=== PATIENT | female | born 1955 | race African-American/Black ===

== ENCOUNTER 2021-08-07 08:52 | Emergency (ER) | payer OTHER ==
--- OUTSIDE RECORDS SUMMARY | 2021-08-07 08:55 | XMS REPORT | Continuity of Care Document ---
:1955 Author Organization [facility] t Address [address] [place] [address] Care Team Providers Name Role Phone Julio Arambula MD Primary Care Physician Julio Arambula MD Attending Clinician Jeffrey Dougherty MD Attending Clinician Italo REED Attending Clinician Unavailable Lin Her MD Attending Clinician Cally REED Attending Clinician Unavailable Zhao LYN, Yolette Attending Clinician Dimitrios Attending Clinician Unavailable Shay Bonilla MD Attending Clinician Payers Payer Name Policy Type Policy Number Effective Date Expiration Date S ource Problems Condition Condition Condition Status Onset Resolution Last Treating Co mments Source Name Details Category Date Date Treatment Clinician Date COVID COVID-19 Disease Active 2019-06 Metho di 2-23 st 00:00: Hospita 00 l 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 hodi triangular triangular 5-04 st fibrocarti fibrocarti 00:00: Ho spita jl jl 00 l complex 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 Type 2 Type 2 Disease Active Methodi diabetes diabetes 5-17 st mellitus mellitus 00:00: Hospit a 00 l Allergies, Adverse Reactions, Alerts Allergy Allergy Status Severity Reaction(s) Onset Inactive Treating Comm ents Source Name Type Date Date Clinician No Known Propensi Active Method i Drug ty to 17 st Allergie adverse 00:00: Hospita s reaction 00 l s to drug Family History Family Member Diagnosis Comments Start Date Stop Date Source Natural father Heart attack [facility] Natural mother Dementia [facility] Natural sister Diabetes [facility] Natural sister Hypothyroidism [facility] Natural sister Sutton's disease [facility] [place] sister Heart failure [facility] Natural sister Thyroid cancer [facility] Social History Social Habit Start Date Stop Date Quantity Comments Source History of Cigarette Smoker Method[facility] tobacco use Hospital History [facility] Sabianism Alcohol Frequency Hospita l History SDOH Sabianism Alcohol Std Hospital Drinks History [facility] Alcohol Binge Hospital Alcohol intake 2021-05-12 2021-05-12 Current drinker Metho dist 00:00:00 00:00:00 of alcohol Hospital (finding) Tobacco use and 2017-04-22 2017-04-22 Smokeless tobacco [facility] exposure 00:00:00 00:00:00 non-user Hospital Alcohol Comment 2017-04-22 2017-04-22 one drink a month [facility] 00:00:00 00:00:00 Hospital Tobacco Comment 2017-04-22 2017-04-22 2-4 cigs per day [facility] 00:00:00 00:00:00 Hospital Sex [birth year] At [birth year] Sabianism 00:00:00 00:00:00 Hospital Smoking Status Start Date Stop Date Source Smokes tobacco daily 2017-04-22 00:00:00 [facility] Medications Ordered Filled Start Stop Current Ordering Indication Dosage Frequency Signature Comments Components Source Medication Medication Date Date Medication? Clinician (SIG) Name Name aspirin 2020-06 Yes 81mg QD Take 81 mg Meth jose ramon (ECOTRIN) 1-[address] 81 MG 10:05: daily. Hospita enteric 09 l coated tablet olmesartan- 2020-06 Yes 1{tbl} QD Take 1 Me thodi hydrochloro 1-[address] thiazide 00:00: mouth Hospita (BENICAR 00 daily. l HCT) 20-12.5 mg per tablet semaglutide 2020-06 Yes 3mg QD Take 3 mg M ethodi (Rybelsus) 1-[address] 3 mg tablet 00:00: daily. Hosp chad 00 l amoxicillin 2020-06- No 1{tbl} Q.5D Take 1 M ethodi -pot 07-01 11-[address] clavulanate 00:00: 05:59 mouth 2 Ho spita (Augmentin) 00 :00 (two) l 875-125 mg times a per tablet day for 7 days. cetirizine 2020-06 Yes Methodi (ZyrTEC) 10 1-05 st MG tablet 00:00: Hospita 00 l traZODone 2020-06 Yes 25mg QD Take 0.5 Meth jose ramon (DESYREL) 0-[address] 50 MG 00:00: (25 mg Hospita tablet 00 total) by l mouth nightly. levothyroxi 2020-06 Yes 75ug QD Take 1 Meth jose ramon ne 0-14 tablet (75 st (Euthyrox) 00:00: mcg total) H ospita 75 mcg 00 by mouth l tablet daily. Euthyrox 75 2020- No Take 1 Met hodi mcg tablet 03-[address] 00:00: 00:00 mouth once Hospit a 00 :00 daily l levothyroxi 2020- No 75ug QD Take 1 Met hodi ne 6-14 09-09 tablet (75 st (Euthyrox) 00:00: 00:00 mcg total) Hospita 75 mcg 00 :00 by mouth l tablet daily. metFORMIN Yes 500mg Q.5D Take 1 Metho di XR 6-[address] (GLUCOPHAGE 00:00: (500 mg Hos rehan -XR) 500 mg 00 total) by l 24 hr mouth 2 tablet (two) times a day. traZODone 2020- No 25mg QD Take 0.5 Met hodi (DESYREL) 6- 10-[address] 50 MG 00:00: 00:00 (25 mg Hospita tablet 00 :00 total) by l mouth nightly. sodium,pota 2020- No 1{bottl Take 1 Methodi ssium,mag 5-25 05-26 e} Bottle by st sulfates 00:00: 04:59 mouth once Ho spita (Suprep 00 :00 for 1 l Bowel Prep dose. Kit) Drink 1 17.5-3.13-1 bottle as .6 gram directed recon soln for dose 1 and 1 bottle as directed for dose 2. Euthyrox 75 2020- No Take 1 Met hodi mcg tablet 11-[address] 00:00: 00:00 mouth once Hospit a 00 :00 daily l metFORMIN 2020- No 500mg Q.5D Take 1 Meth jose ramon XR 10-[address] (GLUCOPHAGE 00:00: 00:00 (500 mg Ho spita -XR) 500 mg 00 :00 total) by l 24 hr mouth 2 tablet (two) times a day. levothyroxi No 75ug QD Take 1 Met hodi ne 09-27 tablet (75 st (Euthyrox) 00:00: 00:00 mcg total) Hospita 75 mcg 00 :00 by mouth l tablet daily. traZODone 2020- No TAKE 1/2 Met hodi (DESYREL) 09-18 (ONE-HALF) st 50 MG 00:00: 00:00 TABLET BY Hospit a tablet 00 :00 MOUTH l NIGHTLY metFORMIN 2020- No Take 1 Metho di XR 08-[address] (GLUCOPHAGE 00:00: 00:00 mouth Hosp chad -XR) 500 mg 00 :00 twice l 24 hr daily tablet Euthyrox 75 2020- No Take 1 Met hodi mcg tablet 08-[address] 00:00: 00:00 mouth once Hospit a 00 :00 daily l acetaminoph 2020- No 500mg Q6H Take 1 Me thodi en (Tylenol 08-[address] Extra 00:00: 05:59 (500 mg Hospita Strength) 00 :00 total) by l 500 MG mouth tablet every 6 (six) hours as needed for mild pain for up to 5 days. Euthyrox 75 2020- No Take 1 Met hodi mcg tablet 07-20- tablet by st 00:00: 00:00 mouth once Hospit a 00 :00 daily l metFORMIN 2020- No Take 1 Metho di XR 07-20- tablet by st (GLUCOPHAGE 00:00: 00:00 mouth Hosp chad -XR) 500 mg 00 :00 twice l 24 hr daily tablet lisinopriL 2019-06 Yes 10mg QD Take 1 Metho di (PRINIVIL) 2-30 tablet (10 st 10 mg 00:00: mg total) Hospita tablet 00 by mouth l daily. traZODone 2019-06 25mg QD Take 0.5 Met hodi (DESYREL) 2-29 -[address] 50 MG 00:00: 00:00 (25 mg Hospita tablet 00 :00 total) by l mouth nightly for 90 days. Immunizations Ordered Immunization Filled Immunization Date Status Commen ts Source Name Name PFIZER COVID-19 MRNA 2020-10-04 Completed Meth odist VACCINATION 00:00:00 [facility] PFIZER COVID-19 MRNA 2020-09-13 Completed Meth odist VACCINATION 00:00:00 Hospital Vital Signs Vital Name Observation Time Observation Value Comments Source Systolic blood 2021-05-12 16:03:00 161 mm[Hg] [facility] pressure Diastolic blood 2021-05-12 16:03:00 86 mm[Hg] [facility] pressure Heart rate 2021-05-12 16:03:00 80 /min [facility] Body height 2021-05-12 16:03:00 154.9 cm [facility] Body weight 2021-05-12 16:03:00 71.215 kg [facility] BMI 2021-05-12 16:03:00 29.66 kg/m2 [facility] Body temperature 2020-08-05 00:13:00 36.83 Shauna [facility] Respiratory rate 2020-08-05 00:13:00 18 /min [facility] Oxygen saturation in 2020-08-05 00:13:00 99 /min [facility] Arterial blood by Pulse oximetry Procedures Procedure Date / Time Performing Clinician Source Performed HEMOGLOBIN A1C 2021-05-01 17:20:00 Rosanna Arambula [facility] COMPREHENSIVE METABOLIC 2021-05-01 [facility] PANEL CBC WITH PLATELET AND 2021-05-01 17:20:00 Rosanna Arambula [facility] DIFFERENTIAL MICROALBUMIN, URINE, 2021-05-01 17:20:00 Rosanna Arambula [facility] RANDOM XR FOOT 3+ VW RIGHT 2021-01-03 15:35:13 Pedro Dougherty [facility] XR FOOT 3+ VW RIGHT 2020-12-06 17:11:13 Pedro Dougherty [facility] XR LOWER EXTREMITY 2020-12-04 17:18:00 Pedro Dougherty [facility] EXTERNAL STUDY US ABDOMEN COMPLETE 2020-08-22 19:32:21 Rosanna Arambula [facility] URINE CULTURE 2020-08-05 15:03:00 Chad, [facility] CT RENAL STONE PROTOCOL 2020-08-04 23:38:36 Chad, [facility] HC COMPLETE BLD COUNT 2020-08-04 22:13:00 Chad Jai D. [facility] W/AUTO DIFF URINALYSIS 2020-08-04 22:13:00 Chad, [facility] COMPREHENSIVE METABOLIC 2020-08-04 22:13:00 Chad, [facility] PANEL AMYLASE LEVEL 2020-08-04 22:13:00 Chad, [facility] LACTIC ACID, I-STAT 2020-08-04 22:13:00 Chad, [facility] ESTIMATED GFR 2020-08-04 22:13:00 Chad, [facility] CBC WITH PLATELET AND 2020-08-03 21:58:00 StubbersRosanna [facility] DIFFERENTIAL COMPREHENSIVE METABOLIC 2020-08-03 21:58:00 Stubbers Rosanna Homero [facility] PANEL HEMOGLOBIN A1C 2020-08-03 21:58[facility] HEPATITIS C ANTIBODY 2020-08-03 21:58:00 StubbersRosanna [facility] LIPID PANEL 2020-08-03 21:58:00 [facility] T4, FREE 2020-08-03 21:58:00 StRosanna snow [facility] THYROID STIMULATING 2020-08-03 21:58:00 [facility] HORMONE URINALYSIS, COMPLETE, 2020-08-03 21:58:00 Rosanna Arambula [facility] WITH REFLEX TO CULTURE VITAMIN D 25 HYDROXY 2020-08-03 21:58:00 Rosanna snow Met [facility] LEVEL MICROALBUMIN, URINE, 2020-08-03 21:58:00 Rosanna snow [facility] RANDOM ECG 12-LEAD 2020-08-03 20:24:34 [facility] Plan of Care Planned Activity Planned Date Details Comments Source Future Scheduled 2021-07-26 COLONOSCOPY SCREENING [facility] Test 00:30:44 [code = COLONOSCOPY SCREENING] Future Scheduled 2021-07-26 SHINGLES VACCINES (#1) [facility] Test 00:30:44 [code = SHINGLES VACCINES (#1)] Future Scheduled 2021-07-26 BREAST CANCER [facility] Test 00:30:44 SCREENING [code = BREAST CANCER SCREENING] Future Scheduled 2021-07-26 Screening for [facility] Test 00:30:44 malignant neoplasm of cervix (procedure) [code = 851535207] Future Scheduled 2021-07-26 INFLUENZA VACCINE [facility] Test 00:30:44 [code = INFLUENZA VACCINE] Future Scheduled 2021-07-26 COVID-19 VACCINE (3 - [facility] Test 00:30:44 Booster for Pfizer series) [code = COVID-19 VACCINE (3 - Booster for Pfizer series)] Future Scheduled 2021-07-26 DIABETES: RETINAL EYE [facility] Test 00:30:44 EXAM [code = DIABETES: RETINAL EYE EXAM] Future Scheduled 2021-07-26 DIABETIC FOOT EXAM [facility] Test 00:30:44 [code = DIABETIC FOOT EXAM] Future Scheduled 2021-07-26 URINE MICROALBUMIN [facility] Test 00:30:44 [code = URINE MICROALBUMIN] Encounters Start End Encounter Admission Attending Care Care Encounter Source Date/Time Date/Time Type Type Clinicians Facility Department ID 2021-05-12 2021-05-12 Telemedici Stubbers, 1.2.840.1 [id number] Methodi 09:56:25 11:10:07 ne Rosanna Kim 41003.1.[address] 3.430.2.7 Hospit a .3.657259 l .8 2021-05-01 2021-05-01 Office Stubbers, 1.2.840.1 [id number] Methodi 10:16:22 11:32:34 Visit Rosanna Kim 26760.1.[address] 3.430.2.7 Hospit a .3.392795 l .8 2021-05-01 2021-05-01 Travel 1.2.840.1 1.2.163.567 [id number] Methodi 00:00:00 00:00:[address] 3.430.2.7 0.2.7.3.698 Ho spita .3.838982 084.8 l .8 2021-04-06 2021-04-06 Refill Stubbers, 1.2.840.1 [id number] 2100 [id number] Methodi 00:00:00 00:00:00 Rosanna Kim [address]005.1.[address] 3.430.2.7 Hospit a .3.907185 l .8 2021-03-02 2021-03-02 Refill Stubbers, 1.2.840.1 [id number] 2100 [id number] Methodi 00:00:00 00:00:00 Rosanna Kim [address]80.1.[address] 3.430.2.7 Hospit a .3.789002 l .8 2021-01-03 2021-01-03 Office Cosculluela 1.2.840.1 [id number] 21 [id number] Methodi 10:08:06 10:23:06 Visit , Ana RosaHomero 45870.1.1 242 s t 3.430.2.7 Hospit a .3.109926 l .8 2021-01-03 2021-01-03 Travel 1.2.840.1 1.2.686.484 6730 [id number] Methodi 00:00:00 00:00:[address] 3.430.2.7 0.2.7.3.698 Ho spita .3.625563 084.8 l .8 2020-12-30 2020-12-30 Travel 1.2.840.1 1.2.098.353 9697 [id number] Methodi 00:00:00 00:00:[address] 3.430.2.7 0.2.7.3.698 Ho spita .3.982797 084.8 l .8 2020-12-06 2020-12-06 [facility] 1.2.840.1 [id number] 2 [id number] Methodi 12:15:37 23:59:00 Encounter , Ana RosaHomero 97337.1.[address] 3.430.2.7 Hospit a .3.613919 l .8 2020-12-06 2020-12-06 [facility] 1.2.840.1 [id number] 21 [id number] Methodi 11:13:04 12:40:18 Visit , Ana RosaHomero 28462.1.1 531 s t 3.430.2.7 Hospit a .3.012397 l .8 2020-12-05 2020-12-05 Travel 1.2.840.1 1.2.340.977 9995 [id number] Methodi 00:00:00 00:00:[address] 3.430.2.7 0.2.7.3.698 Ho spita .3.597699 084.8 l .8 2020-12-05 2020-12-05 Refill Italo, 1.2.840.1 [id number] Methodi 00:00:00 00:00:[address] 3.430.2.7 Hospit a .3.149941 l .8 2020-12-01 2020-12-01 Refill Stubteri, 1.2.840.1 [id number] 2100 [id number] Methodi 00:00:00 00:00:00 Rosanna Kim 51700.1.[address] 3.430.2.7 Hospit a .3.101768 l .8 2020-11-21 2020-11-21 Refill Stubbers, 1.2.840.1 [id number] 2100 [id number] Methodi 00:00:00 00:00:00 Rosanna Kim [address].1.[address] 3.430.2.7 Hospit a .3.161046 l .8 2020-11-15 2020-11-15 Telephone Schiesser, 1.2.840.1 [id number] 2 [id number] Methodi 00:00:00 00:00:[address] 3.430.2.7 Hospit a .3.967670 l .8 2020-11-15 2020-11-15 Orders Alamo, 1.2.840.1 [id number] [id number] Methodi 00:00:00 00:00:00 Only Kay 67152.1.[address] 3.430.2.7 Hospit a .3.614634 l .8 2020-11-14 2020-11-14 Telephone Schiesser, 1.2.840.1 [id number] 2 [id number] Methodi 00:00:00 00:00:[address] 3.430.2.7 Hospit a .3.098408 l .8 2020-11-11 2020-11-11 Orders Schiesser, 1.2.840.1 [id number] 052 [id number] Methodi 00:00:00 00:00:00 Only Mirtha Ceballos 70467.1.[address] 3.430.2.7 Hospit a .3.211217 l .8 2020-11-09 2020-11-09 Telephone Schiesser, 1.2.840.1 [id number] 2 [id number] Methodi 00:00:00 00:00:00 [address]tha [address]eb[address] 3.430.2.7 Hospit a .3.697666 l .8 2020-11-02 2020-11-02 Refill Stubbers, 1.2.840.1 [id number] 2099 [id number] Methodi 00:00:00 00:00:00 Rosanna Kim [address]84.1.[address] 3.430.2.7 Hospit a .3.178278 l .8 2020-10-19 2020-10-19 Refill Italo, 1.2.840.1 [id number] Methodi 00:00:00 00:00:[address] 3.430.2.7 Hospit a .3.026320 l .8 2020-10-18 2020-10-18 Refill Stubbers, 1.2.840.1 [id number] 2099 [id number] Methodi 00:00:00 00:00:00 Rosanna Kim [address]103.1.[address] 3.430.2.7 Hospit a .3.878258 l .8 2020-10-04 2020-10-04 Clinical Zhao, 1.2.840.1 [id number] [id number] Methodi 09:33:25 09:38:25 Support Naif 90087.1.[address] P. 3.430.2.7 Hospit a .3.549060 l .8 2020-09-27 2020-09-27 Travel 1.2.840.1 1.2.527.311 9143 [id number] Methodi 00:00:00 00:00:[address] 3.430.2.7 0.2.7.3.698 Ho spita .3.749872 084.8 l .8 2020-09-26 2020-09-26 Telephone Stubbers, 1.2.840.1 [id number] Methodi 00:00:00 00:00:00 Rosanna Kim 60737.1.[address] 3.430.2.7 Hospit a .3.870476 l .8 2020-09-23 2020-09-23 Refill Stubbers, 1.2.840.1 [id number] 2099 [id number] Methodi 00:00:00 00:00:00 Rosanna Kim [address]606.1.[address] 3.430.2.7 Hospit a .3.810263 l .8 2020-09-18 2020-09-18 Refill Stubbers, 1.2.840.1 [id number] 2099 [id number] Methodi 00:00:00 00:00:00 Rosanna Kim 90741.1.[address] 3.430.2.7 Hospit a .3.690988 l .8 2020-09-13 2020-09-13 Clinical 1.2.840.1 [id number] Methodi 12:18:10 12:23:[address] 3.430.2.7 Hospit a .3.162008 l .8 2020-08-28 2020-08-28 Refill Stubbers, 1.2.840.1 [id number] 2099 [id number] Methodi 00:00:00 00:00:00 Rosanna Kim [address].1.[address] 3.430.2.7 Hospit a .3.258709 l .8 2020-08-22 2020-08-22 Hospital Stubbers, 1.2.840.1 [id number] Methodi 12:39:33 23:59:00 Encounter Rosanna Kim 15792.1.[address] 3.430.2.7 Hospit a .3.009067 l .8 2020-08-22 2020-08-22 Travel 1.2.840.1 1.2.296.759 0927 [id number] Methodi 00:00:00 00:00:[address] 3.430.2.7 0.2.7.3.698 Ho spita .3.400080 084.8 l .8 2020-08-17 2020-08-17 Travel 1.2.840.1 1.2.196.794 3970 [id number] Methodi 00:00:00 00:00:[address] 3.430.2.7 0.2.7.3.698 Ho spita .3.864846 084.8 l .8 2020-08-05 2020-08-05 Telephone Dimitrios, 1.2.840.1 [id number] 2100 [id number] Methodi 00:00:00 00:00:[address] 3.430.2.7 Hospit a .3.244624 l .8 2020-08-04 2020-08-04 Emergency Chad, 1.2.840.1 [id number] Methodi 15:35:00 18:30:00 Jai Day 52465.1.1 595 s t 3.430.2.7 Hospit a .3.033066 l .8 2020-08-04 2020-08-04 Telephone Italo, 1.2.840.1 [id number] 2100 [id number] Methodi 00:00:00 00:00:[address] 3.430.2.7 Hospit a .3.773243 l .8 2020-08-03 2020-08-03 Office Stubbers, 1.2.840.1 [id number] 2099 [id number] Methodi 13:32:53 15:06:47 Visit Rosanna Kim 05561.1.[address] 3.430.2.7 Hospit a .3.007579 l .8 2020-08-03 2020-08-03 Travel 1.2.840.1 1.2.123.754 0541 [id number] Methodi 00:00:00 00:00:[address] 3.430.2.7 0.2.7.3.698 Ho spita .3.217727 084.8 l .8 Results Test Description Test Time Test Comments Results Result Comments Source Comprehensive metabolic panel 2021-05-02 19:42:00 Test Item Value Reference Range Interpretation Comme nts Glucose (test code = 131 mg/dL 65-99 H Fasting 2345-7) reference inter jazmyne For someone without known diabetes, a glu cosevalue >125 mg/dL cole cates that they may havedi abetes and this should be confirmed with afollow-up test. BUN (test code = 3094-0) 18 mg/dL 7-25 Creatinine (test code = 1.14 mg/dL 0.50-0.99 H For patients >49 years of 2160-0) age, the refere nce limitfor Creati nine is approximately 1 3% higher for peopleident ified as -Bruna n. EGFR Non-Afr. [place] See_Comment L [Aut omated message] The (test code = 2775) system [employer] generated this result tra nsmitted reference range : > OR = 60 mL/min/1.73m 2. The reference range was not used to interpr et this result as normal/abnormal . EGFR See_Comment L [Auto mated message] The (test code = 2774) system [employer] generated this result tra nsmitted reference range : > OR = 60 mL/min/1.73m 2. The reference range was not used to interpr et this result as normal/abnormal . BUN/creatinine ratio See_Comment [Autom ated message] The (test code = 3097-3) system which generated this result tra nsmitted reference range : 6 - 22 (calc). The ref erence range was not u sed to interpret this result as normal/abnormal . Sodium (test code = 141 mmol/L 779-843 9759-2) Potassium (test code = 4.4 mmol/L 3.5-5.3 2823-3) Chloride (test code = 101 mmol/L 98-110 2075-0) CO2 (test code = 2027-9) 28 mmol/L 20-32 Calcium (test code = 9.1 mg/dL 8.6-10.4 24123-9) Protein (test code = 7.2 g/dL 6.1-8.1 2885-2) Albumin, S (test code = 4.5 g/dL 3.6-5.1 1751-7) Globulin, total (test See_Comment [Auto mated message] The code = 37140-2) system which generated this result tra nsmitted reference range : 1.9 - 3.7 g/dL (calc) . The reference range was not used to interpr et this result as normal/abnormal . Albumin/globulin ratio See_Comment [Aut omated message] The (test code = 1759-0) system which generated this result tra nsmitted reference range : 1.0 - 2.5 (calc). The reference range was not u sed to interpret this result as normal/abnormal . Total bilirubin (test 0.3 mg/dL 0.2-1.2 code = 1975-2) Alkaline phosphatase 45 U/L 37-153 (test code = 6768-6) AST (test code = 1920-8) 13 U/L 10-35 ALT (test code = 1742-6) 9 U/L 6-29 JACE (test code = JACE) FASTING:YES FASTING: YES RAC (test code = RAC) Performing Organization Information: Site ID: RGA Name: [facility] Address: [address] [place] [id number] Director: Faisal Hernandez Lab Interpretation (test Abnormal code = 03552-5) [id number] 19:42:00 Test Item Value Reference Interpretation Comments Range Hemoglobin A1C (test See_Comment H For donita eone without code = 4548-4) known diabete s, a hemoglobin A1cv alue of 6.5% or grea ter indicates that they may have diabet es and this should be confirmed with a follow-up test. For someone with kn own diabetes, a jazmyne ue <7% indicates t hat their diabetes is well controlled and a value greater than or equal t o 7% indicates suboptimal cont rol. A1c targets chaparro uld be individualiz ed based on durati on of diabetes, ag e, comorbid conditions, and other considerations. Currently, no consensus exist s regarding use ofhemoglobin A1 c for diagnosis o f diabetes for children. [Automated mess age] The system whic h generated this result transmit yuriy reference range : <5.7 % of total Hgb. The refere nce range was not u sed to interpret th is result as normal/abnormal . JACE (test code = FASTING:YES JACE) FASTING: YES RAC (test code = Performing RAC) Organization Information: Site ID: RGA Name: [facility] Address: [address] [place] [address] [place] [address] Director: Faisal Hernandez Lab Interpretation Abnormal (test code = 59177-5) [facility] with platelet and [id number] 19:42:00 Test Item Value Reference Range Interpretation Comments WBC (test code = See_Comment [Automated 6690-2) message] The system which generated this result transmitted reference range : 3.8 - 10.8 Thousand/uL. Th e reference range was not used to interpret this result as normal/abnormal . RBC (test code = See_Comment [Automated 789-8) message] The system which generated this result transmitted reference range : 3.80 - 5.10 Million/uL. The reference range was not used to interpret this result as normal/abnormal . HGB (test code = 12.3 g/dL 11.7-15.5 718-7) HCT (test code = 37.3 % 35.0-45.0 4544-3) MCV (test code = 87.1 fL 80.0-100.0 787-2) MCH (test code = 28.7 pg 27.0-33.0 785-6) MCHC (test code = 33.0 g/dL 32.0-36.0 786-4) RDW (test code = 13.5 % 11.0-15.0 788-0) Platelet count See_Comment [Automated (test code = message] The 777-3) system which generated this result transmitted reference range : 140 - 400 Thousand/uL. Th e reference range was not used to interpret this result as normal/abnormal . MPV (test code = 10.6 fL 7.5-12.5 776-5) Neutrophils, See_Comment [Automated absolute (test message] The code = 751-8) system which generated this result transmitted reference range : 1,500 - 7,800 cells/uL. The reference range was not used to interpret this result as normal/abnormal . Lymphocytes, See_Comment [Automated absolute (test message] The code = 731-0) system which generated this result transmitted reference range : 850 - 3,900 cells/uL. The reference range was not used to interpret this result as normal/abnormal . Monocytes, See_Comment [Automated absolute (test message] The code = 742-7) system which generated this result transmitted reference range : 200 - 950 cells/uL. The reference range was not used to interpret this result as normal/abnormal . Eosinophils, See_Comment [Automated absolute (test message] The code = 711-2) system which generated this result transmitted reference range : 15 - 500 cells/uL. The reference range was not used to interpret this result as normal/abnormal . Basophils, See_Comment [Automated absolute (test message] The code = 704-7) system which generated this result transmitted reference range : 0 - 200 cells/u L. The reference range was not used to interpr et this result as normal/abnormal . Neutrophils (test 37.4 % code = 770-8) Lymphocytes (test 48.9 % code = 736-9) Monocytes (test 7.7 % code = 5905-5) Eosinophils (test 4.9 % code = 713-8) Basophils + RC 1.1 % (test code = 706-2) JACE (test code = FASTING:YES JACE) FASTING: YES RAC (test code = Performing RAC) Organization Information: Site ID: [facility] Name: [facility] Address: [address] [place] [phone] Director: F[facility]al [facility]Big [facility] CenterMicroalbumin, urine, [id number] 19:42:00 Test Item Value Reference Range Interpretation Comments Microalbumin 0.3 mg/dL See Note: Reference Range : , urine Reference Range Not (test code = established 49266-0) MARIA ESTHER (test The ADA define s code = abnormalities i n 8251-1) albuminexcretio n as follows: Albumi forrest Category Result (mcg/mg creatin ine) Normal to Mildl y increased <30Moderately i ncreased 30-299 Severely increa sed > OR = 30 0 The ADA recommends that at least two of threespecimens collected withi n a 3-6 month period be abnormal before consider ing a patient to bewi thin a diagnostic grady gory. JACE (test FASTING:YES code = JACE) FASTING: YES RAC (test Performing code = RAC) Organization Information: Site ID: [facility] Name: [facility] Address: [address] [place] [phone] Director: [facility] 12 [id number] 00:09:40 Test Item Value Reference Range Interpretation Comments Ventricular rate (test code = 253) Atrial rate (test code = 255) CA interval (test code = 266) QRSD interval (test code = 260) QT interval (test code = 264) QTC interval (test code = 265) P axis 1 (test code = 267) QRS axis 1 (test code = 268) T wave axis (test code = 270) EKG impression (test Normal sinus code = 273) rhythm-Nonspecific T wave abnormality-Abnormal ECG-In automated comparison with ECG of 03-AUG-2020 14:24,-No significant change was found- [facility] Center[facility] [id number] 16:46:58 Test Item Value Reference Range Interpretation Comments Urine culture Mixed rudi Specimen isolate (test <=10-3 col/cc InformationSp ecimen code = 55358-7) Source: Urin eSpecimen [facility] [id number] 21:36:00 Test Item Value Reference Interpretation Comments Range Cholesterol, total 244 mg/dL <200 H (test code = 2093-3) HDL cholesterol 63 mg/dL See_Comment [Automated (test code = 2085-9) message ] The system which generated this result transmitted reference range : > OR = 50. The reference range was not used to interpret this result as normal/abnormal . Triglycerides (test 260 mg/dL <150 H If a no n-fasting code = 2571-8) specimen was collected, considerrepeat triglyceride testing on a fasting specime nif clinically indicated. Rusty calix et al. J. of Cl in. Lipidol. 2015;9:129-169. LDL cholesterol mg/dL (calc) H Reference ra nge: calculated (test <100 Desira ble code = 55327-5) range <100 m g/dL for primary prevention; <7 0 mg/dL for patie nts with CHD or diabetic patien ts with > or = 2 C HD risk factors. L DL-C is now calculat ed using the Dangelo-Sweeney calculation, wh ich is a validated novel method providing rommel r accuracy than t he Renetta equa tion in the estimati on of LDL-C. Alma Rosa n SS et al. WALT. 2013;310(19): 1614-9453 (http://educati on. [employer] .Dydra /faq/LAW281) Cholesterol/HDL See_Comment [Automated ratio (test code = message] The system 9830-1) which generated this result transmitted reference range : <5.0 (calc). Th e reference range was not used to interpret this result as normal/abnormal . Non-HDL cholesterol See_Comment H For anne ents with (test code = diabetes plus 1 75143-0) major ASCVD ris k factor, treatin g to a non-HDL-C goa l of <100 mg/dL (LDL -C of <70 mg/dL) i s considered a therapeutic opt ion. [Automated message] The sy stem which generated this result transmitted reference range : <130 mg/dL (mariel c). The reference r phil was not used to interpret this result as normal/abnormal . JACE (test code = FASTING:NOFASTING JAEC) : NO RAC (test code = Performing RAC) Organization Information: Site ID: [facility] Name: [facility] Address: [address] [place] [address] Director: Faisal Hernandez Lab Interpretation Abnormal (test code = 83510-2) [place] [address], [id number] 21:36:00 Test Item Value Reference Range Interpretation Comments T4, free (test code 1.3 ng/dL 0.8-1.8 = 3024-7) JACE (test code = FASTING:NOFASTING: NO JACE) RAC (test code = Performing Organization RAC) Information: Site ID: [facility] Name: [facility] Address: [address] [place], [place] [id number] Director: Faisal Hernandez [facility] CenterThyroid stimulating [id number] 21:36:00 Test Item Value Reference Range Interpretation Comments TSH (test See_Comment [Automated mes jayy] code = The system whic h 3016-3) generated this result transmit yuriy reference range : 0.40 - 4.50 mIU /L. The reference r phil was not used to interpret this result as normal/abnormal . JACE (test FASTING:NOFASTING: NO code = JACE) RAC (test Performing code = RAC) Organization Information: Site ID: [facility] Name: [facility] Address: [address] [place] [phone] Director: [facility]itamin D 25 hydroxy [id number] 21:36:00 Test Item Value Reference Range Interpretation Comments Vitamin D, 44 ng/mL 30-100 Vitamin D Statu s 25-hydroxy 25-OH Lucrecia min (test code = D: Deficiency: 1989-3) < 20 ng/mLInsufficie ncy: 20 - 29 ng/mLOptimal: > or = 30 ng/mL For 25-OH Vitamin D testi ng on patients on D2-supplementat ion and patients fo r whom quantitati on of D2 and D3 fractions is required, the QuestAssureD(TM )25- OH VIT D, (D2,D 3), LC/MS/MS is recommended: or kailee code 87459 (patients >2yrs).See Note 1 Note 1 For additional information, pl ease refer to http://educatio n[employer]/ faq/AXD032 (Thi s link is being provided for informational/e duca tional purposes only.) JACE (test code FASTING:NOFASTING: = JACE) NO RAC (test code Performing = RAC) Organization Information: Site ID: [facility] Name: [facility] Address: [address] [place] [phone] Director: [facility] HospitalHepatitis C [id number] 21:36:00 Test Item Value Reference Range Interpretation Comments Hepatitis C Ab NON-REACTIVE NON-REACTIVE (test code = 70370-4) Signal/cutoff <1.00 HCV antibody was (test code = non-reactive. 93607-6) There is no laboratory evidence of HCV infection. In m ost cases, no furth er action is required. However,if rece nt HCV exposure is suspected, a te st for HCV RNA(severiano t code 51260) is suggested. For additional information ple ase refer tohttp://educat ion .[employer]. Dydra/faq/XWL93s5 (Th is link is bein g provided for informational/e lali ational purpose s only.) JACE (test code = FASTING:NOFASTING: JACE) NO RAC (test code = Performing RAC) Organization Information: Site ID: [facility] Name: [facility] Address: [address] [place] [phone] Director: Faisal Hernandez [facility] CenterURINALYSIS, COMPLETE, WITH REFLEX TO [id number] 21:36:00 Test Item Value Reference Range Interpretation Comments Color, UA (test YELLOW YELLOW code = 5778-6) Appearance (test CLEAR CLEAR code = 5767-9) Specific gravity, 1.001-1.035 urine (test code = 5811-5) pH, urine (test 5.0-8.0 code = 5803-2) Glucose, urine NEGATIVE NEGATIVE (test code = 10485-5) Bilirubin, UA NEGATIVE NEGATIVE (test code = 5770-3) Ketones, UA (test NEGATIVE NEGATIVE code = 2514-8) Occult blood, NEGATIVE NEGATIVE urine (test code = 5794-3) Protein, UA (test NEGATIVE NEGATIVE code = 69535-9) Nitrite, UA (test NEGATIVE NEGATIVE code = 5802-4) Leukocyte NEGATIVE NEGATIVE esterase, UA (test code = 5799-2) WBC, UA (test NONE SEEN See_Comment [Automated code = 5821-4) message] The system which generated this result transmit yuriy reference range : < OR = 5 /HPF. Th e reference range was not used to interpret this result as normal/abnormal . RBC, UA (test 0-2 See_Comment [Automated code = 26499-4) message] The system which generated this result transmit yuriy reference range : < OR = 2 /HPF. Th e reference range was not used to interpret this result as normal/abnormal . Squamous NONE SEEN See_Comment [Automated epithelial cells, message] T he UA (test code = system which 52788-7) generated this result transmit yuriy reference range : < OR = 5 /HPF. Th e reference range was not used to interpret this result as normal/abnormal . Bacteria, UA NONE SEEN NONE SEEN /HPF (test code = 5769-5) Hyaline casts, UA NONE SEEN NONE SEEN /LPF (test code = 5796-8) Reflex (test code NO CULTURE = 630-4) INDICATED JACE (test code = FASTING:NOFASTING: JACE) NO RAC (test code = Performing RAC) Organization Information: Site ID: [facility] Name: [facility] Address: [address] [place] [phone] Director: Faisal Hernandez [facility]
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
[2021-08-07 10:40] VITALS: BP 162/78; TEMP 98.1; O2SAT 100
== END 2021-08-07 10:03 | disposition home or self-care (01) ==
LOC: ER 08:52
DX: S39.012A Strain of muscle, fascia and tendon of lower back, initial encounter (principal); V49.40XA Driver injured in collision with unspecified motor vehicles in traffic accident, initial encounter; I10 Essential (primary) hypertension; F17.210 Nicotine dependence, cigarettes, uncomplicated
CPT/HCPCS: 99281